=== PATIENT | male | born 1985 ===

== ENCOUNTER → 2018-05-14 | Outpatient (CLI) | payer OTHER ==
[~2018-05-14] MED LIST: IOPAMIDOL 76% 50 ML INFUS BTL 0 ML ONE; IOPAMIDOL 76% 75 ML INFUS BTL 75 ML ONE
--- NOTE | 2018-05-14 16:14 | RADIOLOGY IMAGING REPORT ---
FACILITY: [facility] PATIENT NAME: Flip Rodriguez : 1985 MR: [id number] V: [id number] EXAM DATE: ORDERING PHYSICIAN: GUANAKO KHAN TECHNOLOGIST: Location: [facility] Patient: Flip Rodriguez : 1985 Visit/Account:[id number] Date of Sevice: 05/14/2018 CT abdomen and pelvis with IV contrast Indication: Right lower abdominal pain. Pain with urination. Comparison: None available. . Technique: Axial CT images were obtained through the abdomen and pelvis during injection of nonioni c iodinated intravenous contrast. Reformatted coronal and sagittal images were also obtained. One of the following dose optimization techniques was utilized in the performance of this exam: Autom ated exposure control; adjustment of the mA and/or kV according to the patient's size; or use of an i terative reconstruction technique. Specific details can be referenced in the facility's radiology C T exam operational policy. Contrast: 75 ml of Isovue-370 IV contrast. Findings: Lower lung castro: Limited views lower lung field are unremarkable. Liver: No focal parenchymal abnormality of the liver. Biliary: Gallbladder appears unremarkable as well as the intra and extra hepatic biliary system. Pancreas: Normal appearance. Spleen: Normal appearance. Adrenal glands: Unremarkable. Kidneys / retroperitoneum: No evidence of nephrolithiasis or hydronephrosis. No focal normality. Bowel / peritoneum / mesenteries: Visualized gastrointestinal tract, including the appendix, within n ormal limits. The stomach is unremarkable. No free air, free fluid, fluid collections or areas of inflammation. Small umbilical hernia containin g fat. Lymph node assessment: No pathologic adenopathy identified. Pelvic structures: The urinary bladder shows no focal abnormality. The remaining pelvic structures visualized within normal limits. Vessels: No significant atherosclerotic calcifications seen throughout a nonaneurysmal abdominal aort a and branches. Musculoskeletal / Body wall: No acute or aggressive osseous abnormality. IMPRESSION: 1. No acute intra-abdominal abnormality. The appendix is normal. The urinary system is unremarkable. Report Dictated By: Jitendra Roberson at 05/14/2018 4:06 PM Report E-Signed By: Jitendra Roberson at 05/14/2018 4:11 PM WSN:[email or web address]
== END ==
LOC: CT 15:10
PROVIDERS: ATTEND Physician Assistant Medical
DX: R10.31 Right lower quadrant pain (principal)
CPT/HCPCS: 74177; Q9967

== ENCOUNTER → 2018-05-14 | Outpatient (REF) | payer OTHER ==
[2018-05-14 14:08] LABS: PLATELET COUNT, AUTOMATED 201 K/uL (150-450)
== END ==
PROVIDERS: ATTEND Physician Assistant Medical
DX: R10.31 Right lower quadrant pain (principal)
CPT/HCPCS: 82040; 82247; 82310; 82374; 82435; 82565; 82947; 84075; 84132; 84155; 84295; 84450; 84460; 84520; 85025